=== PATIENT | male | born 1995 ===

== ENCOUNTER 2019-11-18 07:00 | Outpatient (RCR) | payer OTHER, SELFPAY | END 2019-11-18 08:26 | disposition home or self-care (01) | LOC: HO.PHPA 07:00 | PROVIDERS: Visit Provider Psychiatry & Neurology Psychiatry | DX: F33.2 Major depressive disorder, recurrent severe without psychotic features (principal) | CPT/HCPCS: 90853 ==

== ENCOUNTER 2020-07-10 11:00 | Outpatient (RCR) | payer OTHER, SELFPAY ==
[2020-07-05 11:35] VITALS: BMI 34.8
--- NOTE | 2020-07-05 12:57 | HO.PS.ADMBH ---
HPI Chief Complaint: MDD Sources of Information: patient interviewed and chart reviewed HPI Guardianship: No Narrative: The patient is a 25 year old Citizen [place] male, single, without children, currently unemployed, living with his family with good social support, referred to [facility] for exacerbation of depressive symptoms. The patient reported that he started having depressive symptoms at the age of 17 after he found his mother and he felt traumatized. He complained of depressed mood, anhedonia, lack of energy and feelings of hopelesness. He denies active suicidal thoughts, previous cassandra or psychosis. During the intake, he stated that his first psychiatric contact was last year after he was admitted at [facility] after a suicidal attempt and later referred at this [facility] for continuation of care in November 2019. He had Prozac 20 mg with fair improvement. Currently, he is non-compliant with medications, he ran out a few weeks ago and he repoted exacerbation of depression. We discussed his diagnosis, treatment options, risks and benefits and he agred to restart Prozac. At this moment no safety concerns. Past Psychiatric History: His first psychiatric contact was in October 2019 after he was admitted at [facility] after a suicidal attempt and later referred at this [facility] for continuation of care in November 2019. He had Prozac 20 mg with fair improvement. No other trials of antidepressants. Medical Evaluation Reviewed: No [facility] Medical History History of headache Family History: Denies Social History: The patient is the youngest of 2 siblings, he was born and raised in [place], his milestones were achieved at expected age, he was raised mostly by his mother since his father emigrated to the [place] to sustain the family. He had a poor school performance but he graduated from high school. Substance History: Admitted a past history of alcohol when he was younger. 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 Trauma History: Denies physical abuse or sexual abuse. He was traumatized when he found his mother at the age of 17. Diagnostics Vital Signs (24Hr): Body Mass Index 34.8 Meds/Allergies Allergies Allergies Allergy/AdvReac Type Severity Reaction Status Date / Time No Known Allergies Allergy Verified 07/05/20 11:35 [No Known Allergies*] Mental Status Exam Mental Status Exam Patient Appearance: Well Grooomed Patient Orientation: Person, Place, Time and Situation Level of Consciousness: Awake Patient Behavior: Appropriate and Cooperative Mood Description: Calm Affect Description: Constricted Patient Cognition Impaired: No Ability to Follow Directions: Good Speech Pattern: Clear Memory Description: Intact Hallucinations: None Delusions: Not Present Thought Process: Goal Oriented Thought Content: positive for Intact Depressive Symptoms: Feelings of Worthlessness Judgement: Fair Judgement and Insight: Insight fair Assessment & Plan Assessment & Plan (1) Major depressive disorder: Status: Acute Code(s): F32.9 - Major depressive disorder, single episode, unspecified Assessment and Plan: Young [place] male with a past history of MDD with a previous admission after a suicidal attempt, self-referred for exacerbation of depression in the context of no access to his providers and Prozac. He seems highly functional at baseline. Plan: Start Prozac 20 mg. F/U next week Certification I certify that partial hospital treatment is medically necessary due to the symptoms and problems resulting from the patient's mental illness and the failure to treat the patient at the partial hospital level of care would likely result in the patient requiring inpatient psychiatric care which could not be prevented at a less intensive level of care. Telehealth Telehealth Location of provider rendering services: practice address Location of patient: address on file Patient Identification confirmed using: Name, : Yes Telehealth method: video Patient verbally consented to treatment: Yes Patient verbally consented to billing insurance company: Yes Patient informed of any privacy concerns related to visit: No Time spent with patient (mins): 45
--- NOTE | 2020-07-05 12:58 | PC.ADMIT ---
Patient is a 25 year old male who self referred back to the [facility] program as he found it helpful. Patient reports increased depression with SI, reports he always has a plan in the back of his head and what is holding him back is his will to do things differently and that is why he is back in the program. Does not have intent, does not want to . Patient has not had a therapist since February 2020 or prescriber d/t missing therapy appointments. Patient reports running out of medications in March. Stated he was on Prozac and found it helpful. Dr Ibarra is aware. Patient is alert and oriented x4. Calm and cooperative. Presents with depressed mood and affect. Asked patient if he started feeling unsafe who could he contact and patient stated his brother whom he lives with. Patient mentioned he lives with in walking distance of 2 hospitals and he is aware that he can go to any emergency room for help if needed. Patient also aware that he can reach out to staff if needed. Patient gave verbal permission to email him a copy of his safety plan. Patient also interested in information on [facility].
--- NOTE | 2020-07-10 12:34 | PC.NURSE ---
Emailed patient information on [facility] employment support services.
--- NOTE | 2020-07-11 13:35 | PC.NURSE ---
When the client did not attend community meeting I called him. He reports that he overslept and i woke him up. He states that he is safe and just tired. He will be in tomorrow.
--- NOTE | 2020-07-12 09:16 | PC.NURSE ---
I called client when he did not come to community meeting this morning. I left a message to call us and informed him he may be discharged.
--- NOTE | 2020-07-12 10:51 | PC.NURSE ---
I called client . He was sleeping and states that he is very tired in the morning. We discussed being discharged at this time and his need for out patient providers.
--- NOTE | 2020-07-12 14:07 | PC.NURSE ---
Patient is being discharged from the program today as he has not attended the program on a consistent basis. Sarah working on follow up appointments for patient at [facility]. Dr Brooks willing to prescribe medication for one month.
--- NOTE | 2020-07-13 12:48 | PC.NURSE ---
I called and left a message with the client about his PCP agreement to follow monitor his psychiatric medication for one month. I informed him that I left a message fro [facility] to inquire if they are willing to take him back.
--- NOTE | 2020-07-13 13:56 | PC.NURSE ---
I left a message with central intake at [facility] for referral requested a call back.
--- NOTE | 2020-07-13 14:13 | PC.NURSE ---
I spoke with belgica at [facility] and she will call back with appointment times for the client . She will also call the client directly.
== END 2020-07-13 07:24 | disposition home or self-care (01) ==
LOC: HO.PHPA 11:00
PROVIDERS: PCP Internal Medicine; Visit Provider Psychiatry & Neurology Psychiatry
DX: F32.9 Major depressive disorder, single episode, unspecified (principal); Z91.14 Patient's other noncompliance with medication regimen
CPT/HCPCS: 90791; 90853